=== PATIENT | female | born 1995 | race Hispanic/Latino ===

== ENCOUNTER → 2016-11-11 | Outpatient (REF) | payer OTHER ==
[2016-11-11 16:06] LABS: YEAST LIKE CELL URINE AUTO SMALL
== END ==
LOC: M LAB REF 15:36
PROVIDERS: ATTEND Physician Assistant
DX: N39.0 Urinary tract infection, site not specified (principal)

== ENCOUNTER 2017-11-23 19:52 | Emergency (ER) | payer OTHER | END 2017-11-23 21:25 | disposition home or self-care (01) | LOC: M ED 19:52 | DX: S00.83XA Contusion of other part of head, initial encounter (principal); W18.30XA Fall on same level, unspecified, initial encounter; Y92.018 Other place in single-family (private) house as the place of occurrence of the external cause; F41.9 Anxiety disorder, unspecified | CPT/HCPCS: 70450 ==